=== PATIENT | male | born 1975 | race Asian ===

== ENCOUNTER → 2019-08-05 | Outpatient (CLI) | payer BC ==
[~2019-08-05] MED LIST: ANTIDEPRESSANT; ATIVAN 0.50.5 MG/TAB PO; DESYREL 50MG50 MG; PRISTIQ50 MG PO; PROTONIX40 MG PO; ZOLOFT 25MG25 MG
== END ==
LOC: SUN.DIA 07-23 13:31 → DIA.ED 15:34
DX: E11.9 Type 2 diabetes mellitus without complications (principal); E78.5 Hyperlipidemia, unspecified; E66.9 Obesity, unspecified
CPT/HCPCS: G0108